=== PATIENT | female | born 1990 | race Caucasian/White ===

== ENCOUNTER 2018-12-28 03:10 | Observation (INO) ==
[2018-12-28 03:44] LABS: Bilirubin,Urine Negative (Negative); Blood,Urine Negative (Negative); Clarity,Urine Cloudy (Clear); Color,Urine Yellow (Yellow); Glucose,Urine (UA) Normal (Normal); Ketones,Urine Negative (Negative); Leukocyte Esterase,Urine Small (Negative); Nitrite,Urine Negative (Negative); Protein,Urine Negative (Neg-Trace); Specific Gravity,Urine 1.016 (1.010-1.025); Urobilinogen,Urine Normal (Normal)
[2018-12-28 03:54] LABS: Amphetamine Screen,Urine Negative ng/mL (Cutoff=1000); Barbiturate Screen,Urine Negative ng/mL (Cutoff=200); Benzodiazepines Screen,Urine Negative ng/mL (Cutoff=200); Cannabinoid Screen,Urine Negative ng/mL (Cutoff = 50); Cocaine Screen,Urine Negative ng/mL (Cutoff= 300); Opiate Screen,Urine Negative ng/mL (Cutoff=300); Phencyclidine Screen,Urine Negative ng/mL (Cutoff=25)
[2018-12-28 04:12] LABS: Bacteria,Urine Few per hpf (None-Few); Squamous Epithelial Cell,Urine Few per lpf (None-Few); WBC,Urine 0-3 per hpf (0-3)
== END 2018-12-28 05:22 | disposition home or self-care (01) ==
LOC: 1NENULAB
PROVIDERS: ADMIT Advanced Practice Midwife; ATTEND Advanced Practice Midwife

== ENCOUNTER 2019-02-12 06:13 | Inpatient (IN) ==
[2019-02-12] MEDS ORDERED: Famotidine 20 MG/2 ML VIAL IVP ONE (06:16)
[2019-02-12] MEDS ORDERED: Ringers Solution, Lactated 1,000 ML IVC ONE (06:16)
[2019-02-12] MEDS ORDERED: Metoclopramide 10 MG/2 ML VIAL IVP ONE (06:16)
[2019-02-12] MEDS ORDERED: Clindamycin 900 MG/50 ML 900 MG/50 ML IV.SOLN IVPB ONE (06:16)
[2019-02-12] MEDS ORDERED: Ringers Solution, Lactated 1,000 ML IVC SCH ×2 (06:30→10:47)
[2019-02-12 06:57] LABS: Basophils # 0.1 K/mcL (0.0-0.2); Basophils % 0.6 %; Eosinophils # 0.2 K/mcL (0.0-0.6); Eosinophils % 1.5 %; Hematocrit 36.2 % (35.3-44.9); Hemoglobin 12.6 g/dL (11.5-15.4); Immature Granulocytes % 5.3 % (0-4); Lymphocytes # 2.2 K/mcL (0.6-4.6); Lymphocytes % 21.7 %; Mean Corpuscular HGB Conc 34.8 g/dL (31.6-35.5); Mean Corpuscular Hemoglobin 30.8 pg (28.0-33.3); Mean Corpuscular Volume 88.5 fL (83.0-100.0); Mean Platelet Volume 10.6 fL (9.4-12.4); Monocytes # 0.7 K/mcL (0.0-1.3); Monocytes % 6.7 %; Neutrophils # 6.4 K/mcL (1.6-8.9); Platelet Count 178 K/mcL (140-400); Red Blood Count 4.09 M/mcL (3.82-4.97); Red Cell Distribution Width 14.6 % (11.5-14.5); Segmented Neutrophils % 64.2 %
[2019-02-12 07:24] LABS: Platelet Estimate Normal (Normal)
[2019-02-12 07:25] LABS: Reactive Lymphocytes Present (Not Present)
[2019-02-12] MEDS ORDERED: Terbutaline 1 MG/ML VIAL SQ ONE ×2 (08:16)
[2019-02-12] MEDS ORDERED: *HR* Phenylephrine 10 MG/ML VIAL ONE (08:28)
[2019-02-12 08:53] LABS: Amphetamine Screen,Urine Negative ng/mL (Cutoff=1000); Barbiturate Screen,Urine Negative ng/mL (Cutoff=200); Benzodiazepines Screen,Urine Negative ng/mL (Cutoff=200); Cannabinoid Screen,Urine Negative ng/mL (Cutoff = 50); Cocaine Screen,Urine Negative ng/mL (Cutoff= 300); Opiate Screen,Urine Negative ng/mL (Cutoff=300); Phencyclidine Screen,Urine Negative ng/mL (Cutoff=25)
[2019-02-12] MEDS ORDERED: *HR* Propofol 200 MG/20 ML VIAL IVP ONE (09:16)
[2019-02-12] MEDS ORDERED: *HR* FentaNYL (PF) 100 MCG/2 ML VIAL ONE (09:21)
[2019-02-12] MEDS ORDERED: *HR* Oxytocin 10 UNIT/ML VIAL IM ONE ×2 (09:22→09:43)
[2019-02-12] MEDS ORDERED: *HR* Midazolam HCl 2 MG/2 ML VIAL ONE (09:24)
[2019-02-12] MEDS ORDERED: Dexamethasone 4 MG/ML VIAL ONE (09:27)
[2019-02-12] MEDS ORDERED: Ondansetron 4 MG/2 ML VIAL ONE (09:27)
[2019-02-12] MEDS ORDERED: *HR* HYDROMORPHONE 2 MG/ML VIAL ONE (09:40)
[2019-02-12] MEDS ORDERED: Ketorolac 30 MG/ML VIAL ONE (09:41)
[2019-02-12] MEDS ORDERED: Ringers Solution, Lactated 1,000 ML ONE (09:43)
[2019-02-12] MEDS ORDERED: *HR* Morphine Sulfate/PF 10 MG/10 ML AMPUL ONE (10:11)
[2019-02-12] MEDS ORDERED: Metoclopramide 10 MG/2 ML VIAL IVP PRN (10:47)
[2019-02-12] MEDS ORDERED: *HR* HYDROmorphone 20 MG/20 ML PCA IVC PRN ×2 (10:47→11:00)
[2019-02-12] MEDS ORDERED: *HR* OxyCODONE/APAP 5/325 TABLET PO PRN (10:47)
[2019-02-12] MEDS ORDERED: Acetaminophen IV 1,000 MG/100 ML INFUS..BTL IVPB ONE (10:47)
[2019-02-12] MEDS ORDERED: Ondansetron 4 MG/2 ML VIAL IVP PRN (10:47)
[2019-02-12] MEDS ORDERED: Oxytocin 20 units/ LR 1000 mL 20 UNIT/1,000 ML BAG IVC SCH (10:47)
[2019-02-12] MEDS: Ibuprofen 600 MG TABLET PO PRN (17:46)
[2019-02-12] MEDS: Simethicone 80 MG TAB.CHEW PO PRN (17:46)
[2019-02-13] MEDS: Simethicone 80 MG TAB.CHEW PO PRN ×2 (04:32→19:02)
[2019-02-13] MEDS: Prenatal Vit/FA 1 EACH TABLET PO SCH (09:19)
[2019-02-13] MEDS: *HR* OxyCODONE/APAP 5/325 TABLET PO PRN ×2 (09:20→19:02)
[2019-02-13 09:59] LABS: Basophils % 0.2 %; Eosinophils % 0.3 %; Hematocrit 26.7 % (35.3-44.9); Immature Granulocytes % 2.4 % (0-4); Lymphocytes % 16.8 %; Mean Corpuscular Hemoglobin 30.6 pg (28.0-33.3); Mean Corpuscular Volume 92.7 fL (83.0-100.0); Mean Platelet Volume 10.4 fL (9.4-12.4); Monocytes # 0.7 K/mcL (0.0-1.3); Monocytes % 5.6 %; Platelet Count 146 K/mcL (140-400); Red Blood Count 2.88 M/mcL (3.82-4.97); Red Cell Distribution Width 14.9 % (11.5-14.5); Segmented Neutrophils % 74.7 %
[2019-02-13 10:12] LABS: Hemoglobin 8.8 g/dL (11.5-15.4)
[2019-02-13] MEDS: Ibuprofen 600 MG TABLET PO PRN ×2 (12:09→17:40)
[2019-02-13] MEDS ORDERED: Lanolin 7 G OINT...G. TP PRN (22:30)
[2019-02-14] MEDS: Ibuprofen 600 MG TABLET PO PRN ×3 (00:21→12:48)
[2019-02-14] MEDS: Simethicone 80 MG TAB.CHEW PO PRN ×2 (01:10→12:47)
[2019-02-14] MEDS: *HR* OxyCODONE/APAP 5/325 TABLET PO PRN ×2 (01:10→08:01)
[2019-02-14 08:00] VITALS: BP 131/82
[2019-02-14] MEDS: Prenatal Vit/FA 1 EACH TABLET PO SCH (08:00)
== END 2019-02-14 14:00 | disposition home or self-care (01) | DRG 540 ==
LOC: 1NENULAB 06:13 → EDSTATUS 07:45 → 1NENUOBS 13:04

== ENCOUNTER 2020-12-01 09:26 | Inpatient (IN) ==
[2020-12-01] MEDS ORDERED: Famotidine 20 MG/2 ML VIAL IVP ONE (09:45)
[2020-12-01] MEDS ORDERED: Oxytocin 20 units/ LR 1000 mL 20 UNIT/1,000 ML BAG IVC ONE (09:45)
[2020-12-01] MEDS ORDERED: Oxytocin 20 units/ LR 1000 mL 20 UNIT/1,000 ML BAG IVC SCH ×2 (09:45→16:13)
[2020-12-01] MEDS ORDERED: Ringers Solution, Lactated 1,000 ML IVC SCH (09:45)
[2020-12-01] MEDS ORDERED: Metoclopramide 10 MG/2 ML VIAL IVP ONE (09:45)
[2020-12-01] MEDS ORDERED: Ringers Solution, Lactated 1,000 ML IVC ONE (09:45)
[2020-12-01] MEDS ORDERED: Clindamycin 900 MG/50 ML 900 MG/50 ML IV.SOLN IVPB ONE (09:48)
[2020-12-01 11:06] LABS: Influenza A PCR Negative (Negative); Influenza B PCR Negative (Negative); Resp. Syncytial Virus PCR Negative (Negative); SARS-CoV-2 by PCR (In House) Negative (Negative)
[2020-12-01 11:21] LABS: Basophils # 0.1 K/mcL (0.0-0.2); Basophils % 0.5 %; Eosinophils # 0.1 K/mcL (0.0-0.6); Eosinophils % 1.1 %; Hematocrit 38.5 % (35.3-44.9); Immature Granulocytes % 4.2 % (0-4); Lymphocytes % 19.9 %; Mean Corpuscular HGB Conc 33.8 g/dL (31.6-35.5); Mean Corpuscular Volume 88.9 fL (83.0-100.0); Mean Platelet Volume 10.5 fL (9.4-12.4); Monocytes # 0.7 K/mcL (0.0-1.3); Monocytes % 6.6 %; Neutrophils # 6.9 K/mcL (1.6-8.9); Platelet Count 179 K/mcL (140-400); Red Blood Count 4.33 M/mcL (3.82-4.97); Segmented Neutrophils % 67.7 %; White Blood Count 10.1 K/mcL (4.3-11.1)
[2020-12-01] MEDS ORDERED: *HR* FentaNYL (PF) 100 MCG/2 ML VIAL ONE (11:26)
[2020-12-01] MEDS ORDERED: *HR* Morphine Sulfate/PF 10 MG/10 ML AMPUL ONE (11:26)
[2020-12-01] MEDS ORDERED: Ondansetron 4 MG/2 ML VIAL ONE (11:27)
[2020-12-01 11:39] LABS: Amphetamine Screen,Urine Negative ng/mL (Cutoff=1000); Barbiturate Screen,Urine Negative ng/mL (Cutoff=200); Benzodiazepines Screen,Urine Negative ng/mL (Cutoff=200); Cannabinoid Screen,Urine Negative ng/mL (Cutoff = 50); Cocaine Screen,Urine Negative ng/mL (Cutoff= 300); Opiate Screen,Urine Negative ng/mL (Cutoff=300); Phencyclidine Screen,Urine Negative ng/mL (Cutoff=25)
[2020-12-01] MEDS ORDERED: Ketorolac 30 MG/ML VIAL ONE (13:19)
[2020-12-01] MEDS ORDERED: Acetaminophen IV 1,000 MG/100 ML BAG IVPB ONE (13:19)
[2020-12-01] MEDS ORDERED: Metoclopramide 10 MG/2 ML VIAL IVP PRN (16:13)
[2020-12-01] MEDS ORDERED: Ondansetron 4 MG/2 ML VIAL IVP PRN (16:13)
[2020-12-01] MEDS: metroNIDAZOLE 500 MG TABLET PO SCH ×2 (17:12→22:45)
[2020-12-01] MEDS: Simethicone 80 MG TAB.CHEW PO PRN ×2 (17:12→22:45)
[2020-12-01] MEDS: Acetaminophen 325 MG TABLET PO SCH ×2 (17:13→22:45)
[2020-12-01] MEDS: Clindamycin 900 MG/50 ML 900 MG/50 ML IV.SOLN IVPB SCH (20:08)
[2020-12-01] MEDS: Ibuprofen 600 MG TABLET PO SCH (20:09)
[2020-12-01] MEDS ORDERED: Lanolin 7 G OINT...G. TP PRN (21:45)
[2020-12-02] MEDS: Ibuprofen 600 MG TABLET PO SCH ×3 (01:34→14:57)
[2020-12-02] MEDS: Acetaminophen 325 MG TABLET PO SCH (05:00)
[2020-12-02] MEDS: Clindamycin 900 MG/50 ML 900 MG/50 ML IV.SOLN IVPB SCH ×2 (05:03→12:39)
[2020-12-02 08:24] LABS: Basophils % 0.2 %; Eosinophils # 0.2 K/mcL (0.0-0.6); Eosinophils % 1.5 %; Hemoglobin 9.4 g/dL (11.5-15.4); Immature Granulocytes % 2.1 % (0-4); Lymphocytes # 1.6 K/mcL (0.6-4.6); Lymphocytes % 16.2 %; Mean Corpuscular HGB Conc 32.4 g/dL (31.6-35.5); Mean Corpuscular Hemoglobin 29.5 pg (28.0-33.3); Mean Corpuscular Volume 90.9 fL (83.0-100.0); Mean Platelet Volume 10.5 fL (9.4-12.4); Monocytes # 0.7 K/mcL (0.0-1.3); Monocytes % 6.6 %; Neutrophils # 7.2 K/mcL (1.6-8.9); Platelet Count 145 K/mcL (140-400); Red Blood Count 3.19 M/mcL (3.82-4.97); Red Cell Distribution Width 14.2 % (11.5-14.5); Segmented Neutrophils % 73.4 %; White Blood Count 9.8 K/mcL (4.3-11.1)
[2020-12-02] MEDS ORDERED: Prenatal Vit/FA 1 EACH TABLET PO SCH (09:00)
[2020-12-02] MEDS: metroNIDAZOLE 500 MG TABLET PO SCH (09:15)
[2020-12-02] MEDS: *HR* OxyCODONE/APAP 5/325 TABLET PO PRN ×2 (09:18→13:30)
[2020-12-02] MEDS: Simethicone 80 MG TAB.CHEW PO PRN ×2 (09:20→14:59)
[2020-12-02 11:35] VITALS: BP 108/72; TEMP 97.9; O2SAT 99
[2020-12-02 13:26] VITALS: PULSE 96
== END 2020-12-02 15:32 | disposition home or self-care (01) | DRG 787 ==
LOC: 1NENULAB 09:26 → 1NENUOBS 16:52
PROVIDERS: ADMIT Obstetrics & Gynecology; ATTEND Obstetrics & Gynecology